=== PATIENT | male | born 1935 | race Caucasian/White ===

== ENCOUNTER 2023-11-22 08:00 | Outpatient (CLI) | payer OTHER ==
[~2023-11-22 08:00] MED LIST: COZAAR100 MG; NORVASC2.5 M1; OMEPRAZOLE20 M1; PNEU16DI2; TOPROL XL50 M1; ZANTAC150 M3
== END 2023-11-22 08:22 | disposition home or self-care (01) ==
LOC: TOM 08:00
PROVIDERS: ATTEND Internal Medicine Gastroenterology
DX: K56.609 Unspecified intestinal obstruction, unspecified as to partial versus complete obstruction (principal)